=== PATIENT | male | born 1985 | race Caucasian/White ===

== ENCOUNTER 2018-02-13 14:21 | Emergency (ER) | payer BC ==
[~2018-02-13] VITALS: Ht 182.8 cm; Wt 90.7 kg
[~2018-02-13 14:21] MED LIST: ATIVAN0.5 MG PO; FLEXERIL5 MG PO; HYDROCODONE BIT1 T11 PO; MOTRIN800 MG PO; Motrin,Rufen800 MG PO; NAPROSYN500 MG; SEROQUEL100 MG PO; TRAMADOL HCL50 MG PO; WELLBUTRIN SR150 MG PO
[2018-02-13] MEDS ORDERED: DOXYCYCLINE100 M3 PO (14:56)
== END 2018-02-13 15:02 | disposition home or self-care (01) ==
LOC: ED 14:21
DX: L02.31 Cutaneous abscess of buttock (principal); Z88.4 Allergy status to anesthetic agent

== ENCOUNTER 2023-01-13 15:24 | Emergency (ER) | payer OTHER ==
[~2023-01-13] VITALS: Ht 182.8 cm; Wt 109.3 kg
[~2023-01-13 15:24] MED LIST changes: +DOXYCYCLINE100 M3 PO
[2023-01-13] MEDS ORDERED: HYDROCODONE-AC1 EAC1 PO (17:55)
[2023-01-13] MEDS ORDERED: AMOX-CLAV 875-1 EACH PO (17:55)
== END 2023-01-13 17:41 | disposition home or self-care (01) ==
LOC: ED 15:24
DX: S51.832A Puncture wound without foreign body of left forearm, initial encounter (principal); Z88.8 Allergy status to other drugs, medicaments and biological substances; W54.0XXA Bitten by dog, initial encounter; Y93.89 Activity, other specified; Y92.098 Other place in other non-institutional residence as the place of occurrence of the external cause; Y99.0 Civilian activity done for income or pay

== ENCOUNTER 2023-03-05 12:53 | Emergency (ER) | payer OTHER ==
[~2023-03-05] VITALS: Ht 182.8 cm; Wt 106.6 kg
[~2023-03-05 12:53] MED LIST changes: +AMOX-CLAV 875-1 EACH PO; +CYCLOBENZAPRINE10 MG PO; +HYDROCODONE-AC1 EAC1 PO; +PERCOCET 5-3251 EACH PO; +PREDNISONE50 MG PO
[2023-03-05 15:34] LABS: BILIRUBIN Negative (Negative); BLOOD Negative (Negative); CLARITY Clear (Clear); COLOR Yellow (Yellow); GLUCOSE Negative (Negative); KETONE Negative (Negative); LEUKO ESTERASE Negative (Negative); NITRITE Negative (Negative); UROBILINOGEN 0.2 E.U./dl (0.0-1.0)
[2023-03-05 15:44] LABS: BACTERIA TRACE; EPITHELIAL CELLS 0-2; RBC 0-2 rbc/hpf (0-2); WBC 0-2 wbc/hpf (0-5)
[2023-03-05] MEDS ORDERED: NAPROSYN500 MG PO (17:21)
[2023-03-05] MEDS ORDERED: MIRALAX17 GM PO (17:58)
== END 2023-03-05 18:03 | disposition home or self-care (01) ==
LOC: ED 12:53
PROVIDERS: Nurse Practitioner Family
DX: M54.42 Lumbago with sciatica, left side (principal); M79.605 Pain in left leg; M79.604 Pain in right leg; F41.9 Anxiety disorder, unspecified; Z88.8 Allergy status to other drugs, medicaments and biological substances

== ENCOUNTER 2023-04-02 16:39 | Emergency (ER) | payer OTHER ==
[~2023-04-02] VITALS: Ht 182.8 cm; Wt 106.6 kg
[~2023-04-02 16:39] MED LIST changes: +MIRALAX17 GM PO; +NAPROSYN500 MG PO
[2023-04-02] MEDS ORDERED: VARENICLINE TART1 MG PO (16:43)
[2023-04-02] MEDS ORDERED: LOSARTAN POTAS100 M1 PO (16:44)
[2023-04-02] MEDS ORDERED: ATORVASTATIN CA20 M1 PO (16:44)
[2023-04-02] MEDS ORDERED: AMLODIPINE BESYL5 MG PO (16:44)
[2023-04-02] MEDS ORDERED: METHOCARBAMOL750 M1 PO (16:45)
[2023-04-02] MEDS ORDERED: DIAZEPAM10 M1 PO (16:45)
[2023-04-02] MEDS ORDERED: LAMOTRIGINE200 MG PO (16:46)
[2023-04-02] MEDS ORDERED: OMEPRAZOLE40 MG PO (16:46)
[2023-04-02] MEDS ORDERED: PREDNISONE20 M1 PO (17:06)
== END 2023-04-02 18:05 | disposition home or self-care (01) ==
LOC: ED 16:39
DX: M54.32 Sciatica, left side (principal); F41.9 Anxiety disorder, unspecified; Z88.8 Allergy status to other drugs, medicaments and biological substances

== ENCOUNTER 2024-03-31 12:56 | Emergency (ER) | payer BC ==
[~2024-03-31 12:56] MED LIST changes: +AMLODIPINE BESYL5 MG PO; +ATORVASTATIN CA20 M1 PO; +DIAZEPAM10 M1 PO; +LAMOTRIGINE200 MG PO; +LOSARTAN POTAS100 M1 PO; +METHOCARBAMOL750 M1 PO; +OMEPRAZOLE40 MG PO; +PREDNISONE20 M1 PO; +VARENICLINE TART1 MG PO
== END 2024-03-31 15:39 | disposition left against medical advice (07) ==
LOC: ED 12:56
DX: S69.90XA Unspecified injury of unspecified wrist, hand and finger(s), initial encounter (principal); Z88.8 Allergy status to other drugs, medicaments and biological substances; Z53.21 Procedure and treatment not carried out due to patient leaving prior to being seen by health care provider; X58.XXXA Exposure to other specified factors, initial encounter; Y93.89 Activity, other specified; Y92.89 Other specified places as the place of occurrence of the external cause; Y99.8 Other external cause status